=== PATIENT | male | born 1945 | race Caucasian/White ===

== ENCOUNTER → 2018-04-18 | Outpatient (CLI) | payer BC ==
[2018-03-17 08:27] VITALS: BP 146/76
[~2018-04-18] MED LIST: AMLO5TAB7 PO; CELE200C PO; FERR325T14 PO; LOSA1TAB19 PO; LOSA25TA54 PO; TRAM50TA PO
--- NOTE | 2018-04-18 16:19 | KCIC ---
EXAM: Right lower extremity venous Doppler sonogram. HISTORY: Pain and swelling. TECHNIQUE: Cabello scale and color Doppler sonographic evaluation of the right lower extremity veins with spectral waveform analysis was performed. FINDINGS: There is normal color flow, normal compressibility and there are normal spectral waveforms in the common femoral, superficial femoral, popliteal, posterior tibial and greater saphenous veins. The peroneal veins are not well seen longitudinally. However, these vessels compress normally transversely. There is soft tissue edema at the level of the right ankle. IMPRESSION: No Doppler evidence of lower extremity deep venous thrombosis. Electronically signed by: Jocelyn Peterson MD (04/18/2018 4:15 PM) [id number]
== END | disposition home or self-care (01) ==
LOC: KCIC US 14:33
PROVIDERS: ATTEND Orthopaedic Surgery
DX: M25.561 Pain in right knee (principal); R60.0 Localized edema
CPT/HCPCS: 93971